=== PATIENT | female | born 1980 | race African-American/Black ===

== ENCOUNTER 2017-10-22 13:25 | Inpatient (IN) | payer OTHER ==
[2017-10-22] MEDS ORDERED: Ketorolac Tromethamine 30 MG/ML VIAL ONE (13:56)
[2017-10-22 14:28] LABS: #Eosinphils 0.1 thou/uL (0.0-0.7); #Lymphocytes 2.1 thou/uL (1.20-3.40); #Monocytes 0.4 thou/uL (0.11-0.59); #Neutrophils 4.8 thou/uL (1.40-6.50); %Basophils 0.6 % (0.0-1.0); %Eosinophils 1.9 % (0.0-10.0); %Lymphocytes 27.7 % (21.0-51.0); %Monocytes 5.8 % (0.0-10.0); %Neutrophils 64.1 % (42.0-75.0); Hemoglobin 11.8 g/dL (12.0-16.0); Mean Corpuscular HGB CONC 32.1 g/dL (32.0-36.0); Mean Corpuscular Hemoglobin 25.3 pg (27.0-31.0); Mean Corpuscular Volume 78.8 fl (81.0-99.0); Mean Platelet Volume 7.9 fL (7.4-10.4); Platelet Count 288 thou/uL (130-400); RBC Distribution Width 14.6 % (11.5-14.5); Red Blood Cell (RBC) Count 4.65 mill/uL (4.20-5.40); White Blood Cell (WBC) Count 7.5 thou/uL (4.8-10.8)
--- NOTE | 2017-10-22 14:37 | RAD ---
UPRIGHT PORTABLE CHEST 1 VIEW: Date: 10/22/17 HISTORY: 37-year-old female with chest pain. FINDINGS: Minimal cardiomegaly. No confluent pneumonia, overt edema, or pleural effusion. IMPRESSION: Cardiomegaly without other acute process. Little change from prior study. POS: GEORGINA
[2017-10-22 14:51] LABS: ALT (SGPT) 12 U/L (8-55); AST (SGOT) 13 U/L (5-34); Albumin 3.9 g/dL (3.5-5.0); Alkaline Phosphatase 50 U/L (40-150); Anion Gap 12 mmol/L (10-20); BUN (Urea Nitrogen) 15 mg/dL (7.0-18.7); Bilirubin, Total 0.6 mg/dL (0.2-1.2); Calc. Creatinine Clearance 0 mL/min (70-130); Calcium 8.4 mg/dL (7.8-10.44); Carbon Dioxide 21 mmol/L (22-29); Chloride 109 mmol/L (98-107); Estimated GFR-MDRD Greater than 90; Globulin 3.1 g/dL (2.4-3.5); Glucose 94 mg/dL (70-105); Potassium 3.5 mmol/L (3.5-5.1); Sodium 138 mmol/L (136-145)
[2017-10-22 14:53] LABS: CKMB 0.6 ng/mL (0-6.6); Troponin I Less than 0.010 ng/mL (< 0.028)
[2017-10-22 15:05] LABS: Pregnancy Test - Urine (BHCG) Negative (Negative); Pregu Control Background? CLEAR/WHITE (CLR/WHITE); Pregu Control Bar Appear? YES (CONTROL BAR); Specific Gravity 1.024 (1.002-1.036)
[2017-10-22] MEDS ORDERED: Lorazepam 2 MG/ML VIAL ONE (15:32)
[2017-10-22] MEDS ORDERED: levETIRAcetam In NaCl (Iso-Os) 1,500 MG in Premix Bag 1 BAG IVPB SCH ×2 (16:00)
[2017-10-22] MEDS ORDERED: Furosemide 20 MG TAB PO PRN (16:04)
[2017-10-22] MEDS ORDERED: clonazePAM 0.5 MG TAB PO PRN (16:04)
[2017-10-22] MEDS ORDERED: PROVENTIL INHALER 6.7 G (200 INHALATIONS) INH PRN (16:04)
[2017-10-22] MEDS ORDERED: Ondansetron HCl/PF 4 MG/2 ML Vial IVP PRN (16:09)
[2017-10-22] MEDS ORDERED: Acetaminophen 500 MG TAB PO PRN (16:09)
--- NOTE | 2017-10-22 16:56 | HP ---
CHIEF COMPLAINT: Chest pain. HISTORY OF PRESENT ILLNESS: This is a 37-year-old female who apparently had an episode of chest pain during taoism this morning and then apparently on her ride to the ER, had a seizure. The patient ac tively seized again two more times in the emergency room. The patient currently was given Ativan and sedated and not able to provide a history. History obtained from mother and father at bedside. Per parents, the patient has a history of seizures and has been taking Keppra, last saw neurologist in . 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 The patient last saw her cleaning manager i august as well and currently has a patternmaker metal bench in place. Per patient's family, they see Dr. Harp for Neurology and Dr. Gonzalez for Cardiology. The patient's family states otherwise she has n o other issues or complaints or problems. ALLERGIES: LATEX, PENICILLIN, SULFAMETHOXAZOLE, TRIMETHOPRIM, all of which caused her to either zenon k out into a rash, hives, or anaphylaxis. MEDICATIONS: See MAR. PAST MEDICAL HISTORY: Seizures, cardiac architectural abnormality at , as well as biventricular heart failure and hypertension. PAST SURGICAL HISTORY: None. SOCIAL HISTORY: Denies any smoking or alcohol. FAMILY HISTORY: Hypertension, diabetes, cholesterol. REVIEW OF SYSTEMS: Not performed given the patient's condition. PHYSICAL EXAMINATION: VITAL SIGNS: Blood pressure 112/78, heart rate of 78, temperature of 97, respiratory rate of 12. GENERAL: The patient lying in bed. PSYCHIATRIC: Padding on both sides of railing, in no acute distress, sleeping comfortably. HEENT: Pupils are equal, round, and reactive to light and accommodation. Oral cavity moist and pink . NECK: Supple, nontender. Mobile thyroid. LUNGS: Clear to auscultation bilaterally. No increase in AP diameter. Aerating well. CARDIOVASCULAR: Regular rate and rhythm. S1 and S2. Mild 2/6 systolic ejection murmur appreciated. ABDOMEN: Positive bowel sounds. Soft, nontender, nondistended. EXTREMITIES: 2+ peripheral pulses. Trace edema in bilateral lower extremities. NEUROLOGIC: Withdraws to pain; however, the patient has been given benzos for seizures and is likely having an effect of sedation. LABORATORY DATA: CBC within normal limits. BMP within normal limits. Urine screen negati ve. ASSESSMENT: 1. Chest pain. 2. Seizures. 3. Depression. 4. Anxiety. 5. Hypertension. PLAN: 1. Admit to Internal Medicine. Consult Cardiology and Neurology. We will trend enzymes, telemetry monitoring. We will obtain an echo and MRI as well. 2. We will resume home meds as appropriate. 3. We will continue diuretics as well and the patient to be given loading dose of Keppra. We will r esume home dose of Keppra as well after loading dose given in the ER. Case and plan discussed with patient's family, mother, and father at length. They understand and agr ee with this plan. Further management per Neurology and Cardiology.
[2017-10-22 18:35] VITALS: BMI 42.5
[2017-10-22] MEDS: traMADol HCl 50 MG TAB PO PRN (20:02)
[2017-10-22] MEDS ORDERED: Mometasone/Formoterol 120 PUFF INHALER INH PRN (21:00)
[2017-10-22] MEDS: levETIRAcetam 500 MG TAB PO SCH (21:02)
[2017-10-22] MEDS: Carvedilol 3.125 MG TAB PO SCH (21:02)
[2017-10-23 01:38] LABS: Amphetamine Not Detected (NotDetected); Barbiturates Screen Not Detected (NotDetected); Benzodiazepine Screen Detected (NotDetected); Cocaine Metabolite Screen Not Detected (NotDetected); Medtox Control Line Valid? VALID (VALID); Medtox Reader # READER 1; Methadone Not Detected (NotDetected); Methamphetamine Not Detected (NotDetected); Opiate Screen Not Detected (NotDetected); Oxycodone Screen Not Detected (NotDetected); Phencyclidine (PCP) Not Detected (NotDetected); THC/Cannabinoid Screen Not Detected (NotDetected); Tricyclic Screen Not Detected (NotDetected)
[2017-10-23] MEDS: Lorazepam 2 MG/ML VIAL SLOW IVP PRN (03:09)
[2017-10-23 05:28] LABS: Anion Gap 9 mmol/L (10-20); BUN (Urea Nitrogen) 11 mg/dL (7.0-18.7); Calc. Creatinine Clearance 219 mL/min (70-130); Calcium 8.2 mg/dL (7.8-10.44); Carbon Dioxide 21 mmol/L (22-29); Chloride 111 mmol/L (98-107); Estimated GFR-MDRD Greater than 90; Glucose 92 mg/dL (70-105); Potassium 3.2 mmol/L (3.5-5.1); Sodium 138 mmol/L (136-145)
[2017-10-23 05:37] LABS: Eosinophils 1 % (0-10); Hemoglobin 11.5 g/dL (12.0-16.0); Lymphocytes 60 % (21-51); MDiff Complete? YES; Mean Corpuscular HGB CONC 34.7 g/dL (32.0-36.0); Mean Corpuscular Hemoglobin 27.1 pg (27.0-31.0); Mean Platelet Volume 8.4 fL (7.4-10.4); Monocytes 2 % (0-10); Neutrophil 37 % (42-75); PLT Morphology Comment Appears Adequate; Platelet Count 254 thou/uL (130-400); RBC Distribution Width 14.5 % (11.5-14.5); Red Blood Cell (RBC) Count 4.26 mill/uL (4.20-5.40); White Blood Cell (WBC) Count 5.3 thou/uL (4.8-10.8)
[2017-10-23] MEDS ORDERED: FLU VACC QS2017-18 36 mo. & older 0.5 ML SYRINGE IM ONE (09:00)
[2017-10-23] MEDS ORDERED: TOPIRAMATE 200 MG PO SCH (09:00)
[2017-10-23] MEDS: levETIRAcetam 500 MG TAB PO SCH ×2 (09:27→20:26)
[2017-10-23] MEDS: Carvedilol 3.125 MG TAB PO SCH ×2 (09:27→20:26)
[2017-10-23] MEDS: Loratadine 10 MG TAB PO SCH (09:27)
[2017-10-23] MEDS: FLUoxetine HCl 20 MG CAP PO SCH (09:27)
--- NOTE | 2017-10-23 10:00 | MRI ---
MRI BRAIN NONCONTRAST: CLINICAL HISTORY: Seizures. FINDINGS: No ventriculomegaly or acute territorial infarction. No mass effect or midline shift. There are mul tifocal white matter signal abnormalities as well as a cortically based signal abnormality with invol vement of deep white matter bilaterally and posterior right frontal cortex. The imaged skull base fl ow voids were maintained. There is a partially empty sella. IMPRESSION: 1. Nonspecific signal abnormalities of the deep white matter, some of which demonstrate a periventri cular location and may, therefore, relate to edema or underlying process such as multiple sclerosis. 2. There is a stippled region of signal abnormality centered at the posterior right frontal cortex d emonstrating multifocal FLAIR and T2 hyperintensity. This finding is nonspecific. Given its cortica lly based location, this could account for the patient's seizure nidus and may be correlated with EEG for further analysis. In addition, a postcontrast brain MRI is recommended to exclude underlying pa thologic enhancement. POS: GEORGINA
--- NOTE | 2017-10-23 13:19 | PDOC.PN ---
- Subjective Encounter Start Date: 10/23/17 Encounter Start Time: 08:20 Pt seen for followup re: seizure. Sleepy but arousable. Reports feels tired. No chest pain, says she had seizures last night. - Objective MAR Reviewed: Yes Vital Signs & Weight: Vital Signs (12 hours) Temp Pulse Resp BP BP Pulse Ox 10/23/17 11:44 98.0 F 51 L 18 127/72 96 10/23/17 08:14 97.8 F 57 L 18 114/78 99 10/23/17 03:16 98.9 F 69 20 153/82 H 100 Weight Weight 238 lb I&O: 10/22/17 10/23/17 10/24/17 06:59 06:59 06:59 Intake Total 360 Output Total 420 Balance -60 Result Diagrams: 10/23/17 04:53 10/23/17 04:53 EKG Reviewed by me: Yes (Tele: NSR) Phys Exam - Physical Examination Morbid obesity HEENT: PERRLA, moist MMs, sclera anicteric, oral pharynx no lesions Neck: no nodes, no JVD, supple, full ROM Respiratory: no wheezing, no rales, no rhonchi, clear to auscultation bilateral Cardiovascular: RRR, no rub Gastrointestinal: soft, non-tender, positive bowel sounds distended Neurological: moves all 4 limbs Psychiatric: normal affect Skin: no rash Dx/Plan (1) Seizures Code(s): R56.9 - UNSPECIFIED CONVULSIONS Status: Acute (2) Chest pain Code(s): R07.9 - CHEST PAIN, UNSPECIFIED Status: Acute (3) Asthma Code(s): J45.909 - UNSPECIFIED ASTHMA, UNCOMPLICATED Status: Chronic (4) Depression Code(s): F32.9 - MAJOR DEPRESSIVE DISORDER, SINGLE EPISODE, UNSPECIFIED Status : Chronic (5) Hypertension Code(s): I10 - ESSENTIAL (PRIMARY) HYPERTENSION Status: Chronic - Plan * . Awaiting cardiology, neurology consults. Asthma and depression stable. Echo pending. Continue Keppra Review of Systems - Review of Systems Constitutional: negative: fever, chills, sweats, weakness, malaise Respiratory: negative: Cough, Dry, Shortness of Breath, Hemoptysis, SOB with Excertion, Pleuritic Pain, Sputum, Wheezing Cardiovascular: negative: chest pain, palpitations, orthopnea, paroxysmal nocturnal dyspnea, edema, light headedness Gastrointestinal: negative: Nausea, Vomiting, Abdominal Pain, Diarrhea, Constipation, Melena, Hematochezia Genitourinary: negative: Dysuria, Frequency, Incontinence, Hematuria, Retention Neurological: Seizures - Medications/Allergies Allergies/Adverse Reactions: Allergies Allergy/AdvReac Type Severity Reaction Status Date / Time latex Allergy Verified 10/23/17 01:55 Penicillins Allergy Hives Verified 10/23/17 01:55 phenytoin [From Dilantin] Allergy Verified 10/23/17 01:55 sulfamethoxazole Allergy Hives Verified 10/23/17 01:55 [From Bactrim] trimethoprim [From Bactrim] Allergy Hives Verified 10/23/17 01:55 Medications: Current Medications Acetaminophen (Tylenol) 500 mg PO Q6H PRN PRN Reason: Mild Pain (1-3) Albuterol Sulfate (Proventil Hfa) 2 puff INH BID PRN PRN Reason: SOB &/or Wheezing Carvedilol (Coreg) 3.125 mg PO BID COUNTS INCLUDE 234 BEDS AT THE [facility] Last Admin: 10/23/17 09:27 Dose: 3.125 mg Clonazepam (Klonopin) 0.5 mg PO BID PRN PRN Reason: Anxiety Last Admin: 10/22/17 23:50 Dose: 0.5 mg Fluoxetine HCl (Prozac) 20 mg PO QAM COUNTS INCLUDE 234 BEDS AT THE [facility] Last Admin: 10/23/17 09:27 Dose: 20 mg Furosemide (Lasix) 20 mg PO DAILY PRN PRN Reason: Edema Levetiracetam (Keppra) 750 mg PO BID COUNTS INCLUDE 234 BEDS AT THE [facility] Last Admin: 10/23/17 09:27 Dose: 750 mg Loratadine (Claritin) 10 mg PO DAILY COUNTS INCLUDE 234 BEDS AT THE [facility] Last Admin: 10/23/17 09:27 Dose: 10 mg Lorazepam (Ativan) 2 mg SLOW IVP Q6H PRN PRN Reason: Anxiety/Agitation Last Admin: 10/23/17 03:09 Dose: 2 mg Mometasone Furoate/Formoterol Fumar (Dulera 200 Mcg/5 Mcg Inhaler) 2 puff INH BID PRN PRN Reason: Wheezing Ondansetron HCl (Zofran) 4 mg IVP Q6H PRN PRN Reason: Nausea/Vomiting Topiramate [Trokendi (Xr] 200 Mg) 0 each PO DAILY [facility] Tramadol HCl (Ultram) 50 mg PO Q6H PRN PRN Reason: Moderate Pain (4-6) Last Admin: 10/22/17 20:02 Dose: 50 mg
--- NOTE | 2017-10-23 16:59 | CON ---
DATE OF CONSULTATION: 10/23/2017 NEUROLOGY FOLLOWUP CONSULTING PHYSICIAN: Hospitalist Service HISTORY OF PRESENT ILLNESS: Ms. Fraser is a known patient of mine who was following for pseudoseizu res and migraine headaches, who was admitted with chest pain. She reports her migraines have been do ing reasonably well on Topamax. She had monitoring in the EEG lab and her events have otherwise been proven to be psychogenic. She does not need to be on any other anticonvulsants beyond the Topamax f or her migraines. There are no other acute neurologic issues. We have a followup with him in the of roxie.
[2017-10-23] MEDS ORDERED: Potassium Chloride 20 MEQ TAB PO SCH (17:00)
--- NOTE | 2017-10-23 20:09 | CON ---
DATE OF CONSULTATION: 10/23/2017 REASON FOR CONSULTATION: Recurrent episode of unresponsiveness, possible seizure versus syncopal epi sode. HISTORY OF PRESENT ILLNESS: Ms. Nica Fraser is a very pleasant 37-year-old woman. She has a long cardiac history. 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 She had done well from a cardiac standpo int but did develop a peripartum cardiomyopathy in 2002. She had a syncopal episode I believe during the . She underwent an electrophysiologic evaluation which was negative. She did well fro m that standpoint until fairly recently she has been having recurrent episodes of loss of consciousne ss. She underwent an extensive evaluation. She has undergone a neurologic evaluation and also under gone an electrophysiologic evaluation. She ultimately underwent electrophysiologic study which was n egative. The patient also had a monitor in place from Dr. Campbell's office. The patient states that itzel schmitt was in jainism. She said she did not feel quite well. She had some chest pain. Her daughter said she was jerking until the patient still felt lightheaded and then she lost consciousness. She had an ambulance called. She was brought here. She had another episode in the emergency room. She had a monitor in place, results were pending. MEDICATIONS: 1. Advair if needed. 2. Xopenex. 3. Carvedilol 3.125 mg twice a day. 4. Clonazepam. ALLERGIES: BACTRIM, PENICILLIN, DILANTIN. PAST MEDICAL HISTORY: 1. History of mild left ventricular dysfunction, ejection fraction 45-50% most recent echocardiogram . 2. Congenital heart disease, status post repair of anomalous pulmonary venous return at 11 months of age. 3. Some type of an ablation in [place] 13 years ago, unknown condition. 4. ? seizures in the past. 5. History of syncope. 6. Negative EP study in 2016. REVIEW OF SYSTEMS: Constitutional: No significant weight gain or loss. Vision: No changes. Heari ng: No changes. Pulmonary: No cough or wheezing. Gastrointestinal: No nausea, vomiting, or diarr hea. Skin: No rashes. Neurologic: No unilateral weakness or numbness. Psychiatric: No unusual d epression or anxiety. Hematologic: No unusual bruising. Genitourinary: No burning with urination. Musculoskeletal: No unusual joint pains. PHYSICAL EXAMINATION: GENERAL: This is a pleasant 37-year-old woman. VITAL SIGNS: She is 5 foot 4 inches tall, 238 pounds. EYES: Sclerae anicteric. Mouth, mucous membranes are moist. NECK: Supple, no lymphadenopathy. LUNGS: Clear, no wheezing, rales, or rhonchi. CARDIAC: Normal S1, normal S2. There is no murmur, rub, or gallop. ABDOMEN: Soft, nontender, no hepatosplenomegaly. EXTREMITIES: Warm and dry. No clubbing, cyanosis, or edema. HEMATOLOGIC: No unusual bruising. PSYCHIATRIC: Mood and affect normal. NEUROLOGIC: Grossly normal. PERTINENT LABORATORY AND X-RAY FINDINGS: Potassium was slightly low at 3.2. Toxicology of benzodiaz epines is otherwise negative. The EKG, sinus bradycardia, nonspecific ST changes. ASSESSMENT: 1. Recurrent episode of unresponsiveness of uncertain etiology. 2. History of correction of total pulmonary venous return. 3. What sounds like a syncopal episode. PLAN: 1. Try to interrogate the monitor. 2. Echocardiogram pending. 3. Further recommendations altered, Dr. Campbell will see the patient.
[2017-10-24] MEDS: Lorazepam 2 MG/ML VIAL SLOW IVP PRN (04:46)
[2017-10-24] MEDS: levETIRAcetam 500 MG TAB PO SCH ×2 (09:20→20:44)
[2017-10-24] MEDS: FLUoxetine HCl 20 MG CAP PO SCH (09:20)
[2017-10-24] MEDS: Carvedilol 3.125 MG TAB PO SCH (09:21)
[2017-10-24] MEDS: Loratadine 10 MG TAB PO SCH (09:22)
--- NOTE | 2017-10-24 11:01 | PDOC.PN ---
- Subjective Encounter Start Date: 10/24/17 Encounter Start Time: 07:40 Pt seen for followup re: seizure. Denies any chest pain or seizures since yesterday. - Objective MAR Reviewed: Yes Vital Signs & Weight: Vital Signs (12 hours) Temp Pulse Resp BP Pulse Ox 10/24/17 07:28 97.8 F 57 L 18 118/65 100 10/24/17 04:00 97.3 F L 85 15 115/59 L 100 Weight Weight 238 lb I&O: 10/23/17 10/24/17 10/25/17 06:59 06:59 06:59 Intake Total 360 340 Output Total 420 800 Balance -60 -460 Result Diagrams: 10/23/17 04:53 10/23/17 04:53 EKG Reviewed by me: Yes (Tele: NSR) Phys Exam - Physical Examination Morbid obesity HEENT: moist MMs, oral pharynx no lesions Neck: supple Respiratory: clear to auscultation bilateral Cardiovascular: RRR Gastrointestinal: soft Musculoskeletal: pulses present Neurological: moves all 4 limbs Psychiatric: normal affect Dx/Plan (1) Seizures Code(s): R56.9 - UNSPECIFIED CONVULSIONS Status: Acute (2) Chest pain Code(s): R07.9 - CHEST PAIN, UNSPECIFIED Status: Acute (3) Asthma Code(s): J45.909 - UNSPECIFIED ASTHMA, UNCOMPLICATED Status: Chronic (4) Depression Code(s): F32.9 - MAJOR DEPRESSIVE DISORDER, SINGLE EPISODE, UNSPECIFIED Status : Chronic (5) Hypertension Code(s): I10 - ESSENTIAL (PRIMARY) HYPERTENSION Status: Chronic - Plan * . Appreciate neurology and cardiology services input. Await 2D echo report. Review of Systems - Review of Systems Respiratory: negative: Cough, Dry, Shortness of Breath, Hemoptysis, SOB with Excertion, Pleuritic Pain, Sputum, Wheezing Cardiovascular: negative: chest pain, palpitations, orthopnea, paroxysmal nocturnal dyspnea, edema, light headedness Neurological: negative: Weakness, Numbness, Incoordination, Change in Speech, Confusion, Seizures - Medications/Allergies Allergies/Adverse Reactions: Allergies Allergy/AdvReac Type Severity Reaction Status Date / Time latex Allergy Verified 10/23/17 01:55 Penicillins Allergy Hives Verified 10/23/17 01:55 phenytoin [From Dilantin] Allergy Verified 10/23/17 01:55 sulfamethoxazole Allergy Hives Verified 10/23/17 01:55 [From Bactrim] trimethoprim [From Bactrim] Allergy Hives Verified 10/23/17 01:55 Medications: Current Medications Acetaminophen (Tylenol) 500 mg PO Q6H PRN PRN Reason: Mild Pain (1-3) Last Admin: 10/24/17 09:20 Dose: 500 mg Albuterol Sulfate (Proventil Hfa) 2 puff INH BID PRN PRN Reason: SOB &/or Wheezing Carvedilol (Coreg) 3.125 mg PO BID [facility] Last Admin: 10/24/17 09:21 Dose: 3.125 mg Clonazepam (Klonopin) 0.5 mg PO BID PRN PRN Reason: Anxiety Last Admin: 10/22/17 23:50 Dose: 0.5 mg Fluoxetine HCl (Prozac) 20 mg PO QAM [facility] Last Admin: 10/24/17 09:20 Dose: 20 mg Furosemide (Lasix) 20 mg PO DAILY PRN PRN Reason: Edema Levetiracetam (Keppra) 750 mg PO BID [facility] Last Admin: 10/24/17 09:20 Dose: 750 mg Loratadine (Claritin) 10 mg PO DAILY [facility] Last Admin: 10/24/17 09:22 Dose: 10 mg Lorazepam (Ativan) 2 mg SLOW IVP Q6H PRN PRN Reason: Anxiety/Agitation Last Admin: 10/24/17 04:46 Dose: 2 mg Mometasone Furoate/Formoterol Fumar (Dulera 200 Mcg/5 Mcg Inhaler) 2 puff INH BID PRN PRN Reason: Wheezing Ondansetron HCl (Zofran) 4 mg IVP Q6H PRN PRN Reason: Nausea/Vomiting Topiramate [Trokendi (Xr] 200 Mg) 0 each PO DAILY [facility] Tramadol HCl (Ultram) 50 mg PO Q6H PRN PRN Reason: Moderate Pain (4-6) Last Admin: 10/22/17 20:02 Dose: 50 mg
[2017-10-24] MEDS: traMADol HCl 50 MG TAB PO PRN (12:35)
[2017-10-24] MEDS ORDERED: Lidocaine 1% w/Epinephrine 1:200K 30 ML VIAL ONE (13:50)
--- NOTE | 2017-10-24 17:18 | OP ---
DATE OF PROCEDURE: 10/24/2017 PROCEDURE: Loop recorder insertion report. REASON FOR PROCEDURE: Mrs. Fraser is a 37-year-old female who has prior history of syncopal spells and also arrhythmias and remote history of ablation. She has had a loop recorder on place, but faile d to document her arrhythmias. She is here for permanent loop recorder implantable loop recorder ins ertion. PROCEDURE IN DETAIL: The patient received lidocaine in the left fourth intercostal space area subcut aneously for analgesia. The standard tool kit incision was made in this area and a [employer] Reveal LINQ serial number [id number] device was inserted. Dermabond was applied over the wound for closure. Hemostasis was achieved with manual pressure. CONCLUSION: Successful loop recorder implantation. PLAN: Routine followup.
--- NOTE | 2017-10-24 23:19 | CON ---
ELECTROPHYSIOLOGY CONSULTATION REPORT DATE OF CONSULTATION: 10/24/2017 REFERRING PHYSICIAN: Dr. Gonzalez. I am seeing Ms. Fraser at our [facility] telemetry floor as an electrophysiology datapower consultant . Her problems are: 1. A. Recurrent syncopal spells differential diagnosed from arrhythmia, hypertension versus seizure episodes. B. History of EP evaluation in 03/25/2016 shows normal AV celina and sinus celina conduction, no induc ible arrhythmias. C. Prior EEG, that was negative for epileptiform waveforms. 2. History of mild LV dysfunction with LV ejection fraction 45% to 50%, on prior echocardiogram. 3. History of congenital heart disease, status post anomalous pulmonary venous return as a child. 4. Remote history ablation in [place] 13 years ago, details unavailable. 5. History of bradycardia. 6. History of neuropathy. ALLERGIES: BACTRIM, PENICILLIN and DILANTIN. MEDICATIONS AT HOME: Included Advair, Xopenex, carvedilol 3.125 mg twice a day and clonazepam. SUBJECTIVE: Ms. Fraser is returning to hospital for another syncopal spell. At this time, she was wearing her monitor, but she did not have recording performed at that time when the syncopal spell oc curred. She had no prodrome. She does not remember the episode fully, but she was sitting down in t he bench in the adventism and then she passed out. She quite well. She had some atypical chest p ain. The daughter said she had some jerking motion and then she lost consciousness. She did complai n of lightheadedness prior to that to the daughter, but she cannot recall that. Eventually, vasyl schmitt was called and she was brought here in the ER. Since then, she seems to be doing well. She has no further dizziness or loss of consciousness. No stroke-like symptoms, no neurological spells. No fe sunday, chills or cough. REVIEW OF SYSTEMS: Rest of the twelve-point review of systems is unremarkable. PAST MEDICAL HISTORY: As above. SOCIAL HISTORY: Denies smoking, EtOH or drug abuse. ALLERGIES: The patient has a history of LATEX, PENICILLIN, SULFAMETHOXAZOLE and TRIMETHOPRIM allergi es. OBJECTIVE: VITAL SIGNS: Blood pressures are 120/55, heart rate 56, respirations 20 and temperature 97.8 degrees Fahrenheit. GENERAL: This is an alert and oriented woman in no apparent distress. NECK: Supple. Jugular veins are not distended. CHEST: Coarse. No crackles. CARDIOVASCULAR: Heart sounds are regular to rate and rhythm. No murmur or gallop. ABDOMEN: Benign. Bowel sounds positive. EXTREMITIES: Lower extremities without edema, clubbing or cyanosis. Pulses are adequate. NEUROLOGIC: Patient is nonfocal. MUSCULOSKELETAL: No joint swelling or deformities. SKIN: Without rash. DATABASE: Reviewed revealing sinus rhythm, rate of 66 beats per minute, no significant ST-T changes. Telemetry strips currently revealed mild bradycardia of 55 to 60. No tachyarrhythmias are seen. I reviewed the event monitors recordings from 09/25/2017 and from 10/22 and the mild bradycardia was seen. No recording correlating to her current episode is noted. The episode from 10/19 are seen . LABORATORY DATA: Reviewed mild anemia at 11.5, potassium 3.5, initially 3.2, BUN 99, creatinine 0.6 noted. Troponin less than 0.01. The brain MRI shows nonspecific abnormalities only. ASSESSMENT AND PLAN: Ms. Fraser is a pleasant 37-year-old woman with a prior history of congenital heart disease with remote history of ablation, more recent syncopal spells which so far are unexplain ed. As far as her history, we recommend highlighting implantation in the past. Now, she is recurred at this point. We will proceed Dilaudid implant hence. External loop recorder has not revealed atr ial arrhythmias future, she is still going to be at risk for free for which her syncopal spells and i t might be reasonable to have monitoring on the other hand also concerned about potential vasovagal syncope: Good hydration support stockings and avoiding prolonged standing is recommended. She under stands and willing to proceed. We will continue monitoring with a loop recorder. Thank you again for allowing me to participate in the care of this patient. Please do not hesitate t o call if I can be of further help.
[2017-10-25] MEDS: Loratadine 10 MG TAB PO SCH (08:43)
[2017-10-25] MEDS: FLUoxetine HCl 20 MG CAP PO SCH (08:43)
[2017-10-25] MEDS: levETIRAcetam 500 MG TAB PO SCH (08:43)
[2017-10-25] MEDS: traMADol HCl 50 MG TAB PO PRN (09:07)
--- NOTE | 2017-10-25 11:18 | PRG ---
DATE OF SERVICE: 10/25/2017 SUBJECTIVE: Mrs. Fraser seems to be doing well, one day post-loop recorder implant. She had no fur ther syncopal spells. OBJECTIVE DATA: VITAL SIGNS: Blood pressure 92/64 lying down. Blood pressure 105/64 was sitting up. GENERAL: Alert and oriented woman in no apparent distress. NECK: Supple. Jugular veins difficult to visualize. CHEST: Coarse. CARDIOVASCULAR: Heart sounds are regular to rate and rhythm. Left precordial, low precordium insert ion site is well healed. ABDOMEN: Benign. Bowel sounds positive. EXTREMITIES: Lower extremities without edema, clubbing, or cyanosis. DATABASE: Telemetry strips reveals sinus rhythm and marked sinus bradycardia only. ASSESSMENT AND PLAN: Mrs. Fraser is a pleasant 37-year-old woman with prior history of recurrent sy ncopal spells with a history of congenital heart disease with repair in the past prior ablation 13 ye ars ago and had recurrent syncopal spells, although we attempted to monitor her with external loop re corwin, it was unable to capture the episode. She doubt at this point due to recurrent syncopal spells, tachy and bradyarrhythmias. She underwent a loop recorder implant yesterday. She tolerated the procedure well. No complications noted, routin e follow-up is recommended.
--- NOTE | 2017-10-25 12:13 | PRG ---
DATE OF SERVICE: 10/25/2017 SUBJECTIVE: Ms. Fraser is doing okay today. No chest pain or pressure. She said during this hospi talization, she did have another "episode" of being unresponsive, but heart monitor did not show any arrhythmias. LINQ was placed yesterday. PHYSICAL EXAMINATION: VITAL SIGNS: Blood pressure this morning was 92/64, pulse 60. LUNGS: Clear. CARDIAC: Normal S1, S2. ASSESSMENT: 1. Previous peripartum cardiomyopathy many years ago. Most recent ejection fraction 50%-55%. 2. Mild sinus bradycardia. 3. Episodes of unresponsiveness of uncertain etiology. The neurologist did not think she has seizur e disorder. PLAN: 1. Stop carvedilol. 2. Okay to be released home, it is really not clear what is causing her episodes. It is possible th at it is orthostatic hypotension, although puzzling thing is that some of these have occurred even in supine position which would not be compatible with orthostasis. The patient was taken off carvedilo l. She has a LINQ monitor placed to monitor for any arrhythmias.
[2017-10-25 13:05] VITALS: BP 108/65; TEMP 98.2
--- NOTE | 2017-10-25 18:07 | DIS ---
DATE OF ADMISSION: 10/22/2017 DATE OF DISCHARGE: 10/25/2017 Primary care physician: Monica Garcia M.D. DISCHARGE DIAGNOSES: 1. Syncopal episode. 2. Chest pain, resolved. CONSULTATIONS DURING THIS HOSPITALIZATION: Neurology, Dr. Harp; Cardiology, Dr. Gonzalez; and Elect rophysiology, Dr. Campbell. CONDITION OF PATIENT ON THE DAY OF DISCHARGE: Stable. I assessed Ms. Fraser on the day of discharg e. She denies any chest pain. She denies any recurrence of seizures. Vital signs are stable. S1 a nd S2 are heard, regular. Lungs are clear to auscultation bilaterally. HOSPITAL COURSE: Ms. Fraser is a pleasant 37-year-old lady who was admitted to [facility] on 10/22/2017 following a syncopal episode with possible seizure. She was seen by Neur ology Service, who recommended continuing her home dose of anti-seizure medications. She was also seen by Cardiology service. Her carvedilol was discontinued. She was seen by electroph ysiology service and underwent loop recorder implantation on 10/24/2017. She is being discharged meet e in a stable condition. She is advised to follow up with her primary care physician in 3-5 days. On October 23, 2017, she had a white count of 5300, hemoglobin 11.5, platelet count 254,000. Sodium 138, potassium 3.2, which was replaced, creatinine 0.61. She had a normal TSH during this hospitalization. Many thanks for allowing me to participate in your patient's care. Please feel free to contact me if any questions or concerns. DISCHARGE DESTINATION: Home. TOTAL AMOUNT OF TIME SPENT COORDINATING THIS DISCHARGE: 32 minutes.
== END 2017-10-25 13:34 | disposition home or self-care (01) | DRG 261 ==
LOC: ERS 13:25 → 2NO 17:38
PROVIDERS: ADMIT Internal Medicine; ATTEND Internal Medicine
PROC: 0JH632Z Insertion of Monitoring Device into Chest Subcutaneous Tissue and Fascia, Percutaneous Approach (ICD-10-PCS; principal; 2017-10-24)
DX: R55 Syncope and collapse (principal); Z68.41 Body mass index [BMI] 40.0-44.9, adult; E66.01 Morbid (severe) obesity due to excess calories; R00.1 Bradycardia, unspecified; F32.9 Major depressive disorder, single episode, unspecified; R07.9 Chest pain, unspecified; G40.909 Epilepsy, unspecified, not intractable, without status epilepticus; F41.9 Anxiety disorder, unspecified; I10 Essential (primary) hypertension; J45.909 Unspecified asthma, uncomplicated; Z87.74 Personal history of (corrected) congenital malformations of heart and circulatory system; Z88.0 Allergy status to penicillin; Z88.2 Allergy status to sulfonamides; Z91.040 Latex allergy status; Z88.8 Allergy status to other drugs, medicaments and biological substances; Z79.899 Other long term (current) drug therapy
CPT/HCPCS: 33282; 36415; 70551; 71045; 80048; 80053; 80306; 81025; 82553; 84146; 84443; 84484; 85007; 85025; 85027; 93005; 93306; 94760; 96361; 96365; 96375; C1764; J1885; J1953; J2060

== ENCOUNTER 2019-01-29 17:59 | Emergency (ER) | payer OTHER ==
[2019-01-29] MEDS ORDERED: levETIRAcetam 500 MG TAB PO SCH (19:00)
== END 2019-01-29 19:10 | disposition home or self-care (01) ==
LOC: ERS 17:59
DX: R56.9 Unspecified convulsions (principal); Z79.891 Long term (current) use of opiate analgesic; Z79.899 Other long term (current) drug therapy
CPT/HCPCS: 99284

== ENCOUNTER 2019-08-26 07:38 | Emergency (ER) | payer OTHER | END 2019-08-26 09:30 | disposition home or self-care (01) | LOC: ERS 07:38 | DX: L29.9 Pruritus, unspecified (principal) | CPT/HCPCS: 99282 ==

== ENCOUNTER 2021-07-04 12:16 | Emergency (ER) | payer OTHER ==
[2021-07-04 12:46] LABS: #Basophils 0.1 thou/uL (0.0-0.2); #Eosinphils 0.1 thou/uL (0.0-0.7); #Lymphocytes 4.3 thou/uL (1.20-3.40); #Monocytes 0.5 thou/uL (0.11-0.59); #Neutrophils 3.7 thou/uL (1.40-6.50); %Eosinophils 1.4 % (0.0-10.0); %Lymphocytes 49.5 % (21.0-51.0); %Monocytes 5.2 % (0.0-10.0); %Neutrophils 42.9 % (42.0-75.0); Hemoglobin 12.4 g/dL (12.0-16.0); Mean Corpuscular HGB CONC 32.5 g/dL (32.0-36.0); Mean Corpuscular Hemoglobin 25.6 pg (27.0-31.0); Mean Corpuscular Volume 78.7 fL (78.0-98.0); Mean Platelet Volume 8.2 fL (7.4-10.4); Platelet Count 362 thou/uL (130-400); RBC Distribution Width 14.6 % (11.5-14.5); Red Blood Cell (RBC) Count 4.87 mill/uL (4.20-5.40); White Blood Cell (WBC) Count 8.7 thou/uL (4.8-10.8)
[2021-07-04] MEDS ORDERED: levETIRAcetam in NS 1,500 MG in Premix Bag 1 BAG IVPB SCH (13:00)
[2021-07-04 13:06] LABS: Albumin 4.1 g/dL (3.5-5.0)
[2021-07-04 13:07] LABS: Chloride 109 mmol/L (98-107); Potassium 3.5 mmol/L (3.5-5.1); Sodium 138 mmol/L (136-145)
[2021-07-04 13:08] LABS: Calcium 8.9 mg/dL (7.8-10.44)
[2021-07-04 13:09] LABS: Globulin 3.4 g/dL (2.4-3.5); Glucose 109 mg/dL (70-105); Protein, Total 7.5 g/dL (6.0-8.3)
[2021-07-04 13:10] LABS: Anion Gap 15 mmol/L (10-20); Carbon Dioxide 18 mmol/L (22-29)
[2021-07-04 13:11] LABS: Bilirubin, Total 0.4 mg/dL (0.2-1.2)
[2021-07-04 13:12] LABS: Alkaline Phosphatase 53 U/L (40-110); Calc. Creatinine Clearance 0 mL/min (70-130)
[2021-07-04 13:13] LABS: BUN (Urea Nitrogen) 17 mg/dL (7.0-18.7)
[2021-07-04 13:14] LABS: AST (SGOT) 16 U/L (5-34)
[2021-07-04 13:15] LABS: ALT (SGPT) 14 U/L (8-55)
== END 2021-07-04 16:59 | disposition home or self-care (01) ==
LOC: ERS 12:16
DX: G40.909 Epilepsy, unspecified, not intractable, without status epilepticus (principal); Z79.899 Other long term (current) drug therapy
CPT/HCPCS: 36416; 70450; 80053; 84146; 85025; 93005; 96365; J1953

== ENCOUNTER 2024-02-29 09:27 | Outpatient (CLI) | payer OTHER, MEDICARE | END 2024-02-29 09:28 | disposition home or self-care (01) | LOC: BICMAMMO 09:27 | PROVIDERS: ATTEND Nurse Practitioner Family | DX: Z12.31 Encounter for screening mammogram for malignant neoplasm of breast (principal) | CPT/HCPCS: 77063; 77067 ==